=== PATIENT | female | born 1975 | race Caucasian/White ===

== ENCOUNTER 2017-02-08 08:54 | Emergency (ER) | payer OTHER ==
[~2017-02-08] VITALS: Ht 160 cm; Wt 122.0 kg
[~2017-02-08 08:54] MED LIST: FERROUS SULFAT325 MG PO; MARLISSA 30 MCG1 TAB PO
[2017-02-08 08:57] VITALS: BP 122/69
--- NOTE | 2017-02-08 09:39 | NUR ---
PATIENT PRESENTS TO ED WITH SOB X 2 WEEKS . PT STATES SHE HAS A PRODUCTIVE COUGH, HAS BEEN TAKING PREDNISONE AND ALBUTEROL INHALER . DENIES N/V/D; SKIN IS PINK/WARM/DRY; AAOX4 WITH EVEN AND STEADY GAIT; WHEEZES IN RIGHT UPPER LOBE; PT DENIES ANY FEVER, SOB, OR COUGH AT THIS TIME; PATIENT STATES PAIN OF 0/10 AT THIS TIME; VSS; PATIENT POSITIONED FOR COMFORT; HOB ELEVATED;
--- NOTE | 2017-02-08 10:27 | NUR ---
DR STAFFORD AT BEDSIDE
[2017-02-08] MEDS ORDERED: ALBUTEROL SULFATE/IPRATROPIU 3 ML SOL IH ONE (10:30)
[2017-02-08] MEDS ORDERED: methylPREDNISolone SS 125 MG in WATER STERILE 2 ML IM ONE (10:30)
[2017-02-08] MEDS ORDERED: KETOROLAC 60 MG/2 ML VIAL IM ONE (11:00)
[2017-02-08 11:38] VITALS: BP 129/77
--- NOTE | 2017-02-08 11:38 | NUR ---
Patient discharged with v/s stable. Written and verbal after care instructions given and explained. Patient alert, oriented and verbalized understanding of instructions. Ambulatory with steady gait. All questions addressed prior to discharge. ID band removed. Patient advised to follow up with PMD. Rx of TRAMADOL, ATROVENT, PREDNISONE given. Patient educated on indication of medication including possible reaction and side effects. Opportunity to ask questions provided and answered.
== END 2017-02-08 11:38 | disposition home or self-care (01) ==
LOC: MED 08:54
DX: J20.9 Acute bronchitis, unspecified (principal); R03.0 Elevated blood-pressure reading, without diagnosis of hypertension; J45.909 Unspecified asthma, uncomplicated
CPT/HCPCS: 71010; 94640; 96372; 99284; J1885; J2930; J7620; Q0092

== ENCOUNTER 2017-03-04 12:56 | Emergency (ER) | payer OTHER ==
[~2017-03-04] VITALS: Ht 157.5 cm; Wt 121.1 kg
[~2017-03-04 12:56] MED LIST changes: +FERR325E14 PO; -FERROUS SULFAT325 MG PO; -MARLISSA 30 MCG1 TAB PO; +[UNRECOGNIZED DRUG - CODE] PO
[2017-03-04 13:07] VITALS: BP 128/75
--- NOTE | 2017-03-04 14:03 | NUR ---
Patient returning from XRay to bed 4 at this time.
--- NOTE | 2017-03-04 14:05 | NUR ---
41F BIB SELF C/O LEFT RIB PAIN, ACHING, RADIATES TO LEFT BACK, 8/10 X 4 DAYS; NO BRUISING OR SWELLING NOTED TO SITE AT THIS TIME; PT DENIES TRAUMA OR INJURY TO SITE; PT A&OX4, PERRL, BL LUNG SOUNDS CLEAR, RR EVEN/UNLABORED, SKIN IS WARM/DRY/INTACT AT THIS TIME; PT DENIES N/V/D AT THIS TIME; PT RESTING IN BED W/ HOB ELEVATED AND IN LOWEST POSITION; POSITIONED FOR COMFORT; ER MD MADE AWRARE OF STATUS. WILL CONTINUE TO MONITOR.
[2017-03-04] MEDS ORDERED: ACETAMIN/CODEINE 120/12MG-5ML 5 ML UDC PO ONE (14:10)
[2017-03-04] MEDS ORDERED: KETOROLAC 60 MG/2 ML VIAL IM ONE (14:10)
[2017-03-04 14:35] VITALS: BP 136/75
--- NOTE | 2017-03-04 14:35 | NUR ---
Patient discharged with v/s stable. Written and verbal after care instructions given and explained. Patient alert, oriented and verbalized understanding of instructions. Ambulatory with steady gait. All questions addressed prior to discharge. ID band removed. Patient advised to follow up with PMD. Rx of TYLENOL W/ CODEINE 120MG-12MG/5ML & MOTRIN 800MG TAB given. Patient educated on indication of medication including possible reaction and side effects. Opportunity to ask questions provided and answered.
== END 2017-03-04 14:35 | disposition home or self-care (01) ==
LOC: MED 12:56
DX: S29.019A Strain of muscle and tendon of unspecified wall of thorax, initial encounter (principal); J45.909 Unspecified asthma, uncomplicated; X58.XXXA Exposure to other specified factors, initial encounter; Y93.89 Activity, other specified; Y92.89 Other specified places as the place of occurrence of the external cause; Y99.8 Other external cause status
CPT/HCPCS: 71101; 81002; 81025; 93005; 96372; 99284; J1885

== ENCOUNTER 2017-07-31 20:36 | Emergency (ER) | payer OTHER ==
[~2017-07-31] VITALS: Ht 160 cm; Wt 118.4 kg
[2017-07-31 20:40] VITALS: BP 124/77
[2017-07-31] MEDS ORDERED: ONDANSETRON 4 MG/2 ML VIAL IVP ONE (21:10)
[2017-07-31] MEDS ORDERED: MORPHINE SULFATE 4 MG/ML SYR IVP ONE (21:10)
[2017-07-31 21:35] LABS: BASOPHILS # (AUTO) 0.1 K/uL (0.00-0.22); BASOPHILS % (AUTO) 2.2 % (0.0-2.0); EOSINOPHILS # (AUTO) 0.1 K/uL (0-0.4); EOSINOPHILS % (AUTO) 2.2 % (0.0-4.0); HEMATOCRIT 32.3 % (36-48); HEMOGLOBIN 9.6 g/dL (12.0-16.0); LYMPHOCYTES % (AUTO) 30.1 % (20.5-51.1); MEAN CORPUSCULAR HEMOGLOBIN 20 pg (27-31); MEAN CORPUSCULAR HGB CONC 30 g/dL (33-37); MEAN CORPUSCULAR VOLUME 67 fL (80-94); MONOCYTES # (AUTO) 0.5 K/uL (0.8-1.0); MONOCYTES % (AUTO) 7.1 % (1.7-9.3); NEUTROPHILS # (AUTO) 4.1 K/uL (1.8-7.7); NEUTROPHILS % (AUTO) 58.4 % (42.2-75.2); PLATELET COUNT (AUTO) 261 K/uL (140-450); RED BLOOD CELL COUNT(AUTO) 4.85 MIL/uL (4.20-5.40); WHITE BLOOD COUNT (AUTO) 6.8 K/uL (4.8-10.8)
[2017-07-31 21:42] LABS: ANION GAP 13.3 (8-16); CARBON DIOXIDE 26.7 mmol/L (21-32); CREATININE 0.6 mg/dL (0.6-1.3)
[2017-07-31 21:48] LABS: ALBUMIN 3.4 g/dL (3.4-5.0); TOTAL BILIRUBIN 0.3 mg/dL (0.0-1.0)
[2017-07-31 21:48] LABS: APPEARANCE,URINE CLOUDY (CLEAR); BILIRUBIN,URINE NEGATIVE (NEGATIVE); BLOOD, URINE 3+ (NEGATIVE); LEUKOCYTE ESTERASE ,URINE NEGATIVE (NEGATIVE); NITRITE, URINE NEGATIVE (NEGATIVE); PH,URINE 8.5 (5.0-9.0); UGLUCOSE NEGATIVE (NEGATIVE)
[2017-07-31 21:53] LABS: COLOR,URINE RED (YELLOW)
[2017-07-31 21:59] LABS: RBC,URINE TOO NUMEROUS TO COUN /HPF (0-5); WBC,URINE 0-5 (RARE) /HPF (0-5)
[2017-07-31] MEDS ORDERED: KETOROLAC 30 MG/ML VIAL IVP ONE (23:10)
[2017-08-01 01:15] VITALS: BP 129/78
== END 2017-08-01 01:05 | disposition home or self-care (01) ==
LOC: MED 20:36
DX: D25.9 Leiomyoma of uterus, unspecified (principal); D64.9 Anemia, unspecified
CPT/HCPCS: 36415; 74177; 76856; 80053; 81001; 81025; 83690; 84703; 85025; 96374; 96375; 99285; J1885; J2270; J2405; Q0092; Q9967

== ENCOUNTER 2018-12-03 20:58 | Emergency (ER) | payer OTHER ==
[~2018-12-03] VITALS: Ht 160 cm; Wt 120.2 kg
[2018-12-03 21:02] VITALS: BP 123/66
--- NOTE | 2018-12-03 21:04 | NUR ---
TO LOBBY A/W BED , SOLANGE WHITFIELD NOTED
--- NOTE | 2018-12-03 21:25 | NUR ---
ASSUMED CARE OF PT AT THIS TIME. C/O SUDDEN ONSET LEFT LOWER BACK PAIN RADIATING DOWN THE LEFT LEG X 1 DAY. PT DENIES ANY TRAUMA. AAOX4 WITH EVEN AND STEADY GAIT; PATIENT STATES PAIN OF 8/10; VSS; PATIENT POSITIONED FOR COMFORT; HOB ELEVATED; BEDRAILS UP X2; BED DOWN. ER MD MADE AWARE OF PT STATUS. WILL CONTINUE TO MONITOR.
--- NOTE | 2018-12-03 21:25 | NUR ---
PT TAKEN TO BED 10
--- NOTE | 2018-12-03 21:28 | NUR ---
PT TO ER BED 10
--- NOTE | 2018-12-03 21:39 | NUR ---
Dr. Lowry evaluating patient at bedside.
[2018-12-03] MEDS ORDERED: KETOROLAC 30 MG/ML VIAL IM ONE (21:45)
--- NOTE | 2018-12-03 22:11 | NUR ---
PT TAKEN TO XRAY
--- NOTE | 2018-12-03 22:23 | NUR ---
PT RETURN FROM XRAY
[2018-12-03 23:00] VITALS: BP 124/64
--- NOTE | 2018-12-03 23:00 | NUR ---
Patient discharged with v/s stable. Written and verbal after care instructions given and explained. Patient alert, oriented and verbalized understanding of instructions. Ambulatory with steady gait. All questions addressed prior to discharge. ID band removed. Patient advised to follow up with PMD. Rx of ROBAXIN, MOTRIN, AND TRAMADOL given. Patient educated on indication of medication including possible reaction and side effects. Opportunity to ask questions provided and answered.
== END 2018-12-03 23:00 | disposition home or self-care (01) ==
LOC: MED 20:58
DX: M54.42 Lumbago with sciatica, left side (principal); J45.909 Unspecified asthma, uncomplicated; Z79.899 Other long term (current) drug therapy
CPT/HCPCS: 72100; 96372; 99283; J1885

== ENCOUNTER 2019-01-24 20:45 | Emergency (ER) | payer OTHER ==
[~2019-01-24] VITALS: Ht 160 cm; Wt 124.4 kg
[2019-01-24 20:57] VITALS: BP 136/70
--- NOTE | 2019-01-24 21:00 | NUR ---
TO LOBBY, VSS. NO DISTRESS NOTED.
--- NOTE | 2019-01-24 21:34 | NUR ---
PT TAKEN TO XRAY FROM G[facility] AMEZQUITA
--- NOTE | 2019-01-24 21:41 | NUR ---
PT BIB SELF CO COUGH AND 8/10 LEFT SIDED RIB PAIN X 1 WEEK. PT STATES THE PAIN IS A CONSTANT ACHEY PAIN THAT IS WORSE WHILE COUGHING. PT DENIES FEVER. LUNGS CTA. PT REPORTS HX OF ASTHMA AND HAS RUN OUT OF HER INHALER. -- PMH: ASTHMA, ANEMIA -- RX: MUCINEX PT IS RESTING COMFORTABLY. NO SIGNS OF RESPIRATORY DISTRESS. HOB ELEVATED. PT POSITIONED FOR COMFORT. SIDE RAIL UP X 1.
--- NOTE | 2019-01-24 21:43 | NUR ---
PT IN X-RAY AT THIS TIME, GOING TO ER BED 12
--- NOTE | 2019-01-24 21:54 | NUR ---
PT RETURN FROM XRAY TO ER BED 12
--- NOTE | 2019-01-24 23:24 | NUR ---
Dr. Paula evaluating patient at bedside.
[2019-01-24] MEDS ORDERED: KETOROLAC 60 MG/2 ML VIAL IM ONE (23:30)
--- NOTE | 2019-01-25 00:05 | NUR ---
Patient discharged with v/s stable. Written and verbal after care instructions given and explained. Patient alert, oriented and verbalized understanding of instructions. Ambulatory with steady gait. All questions addressed prior to discharge. ID band removed. Patient advised to follow up with PMD. Rx of PREDNISONE, MOTRIN AND ALBUTEROL given. Patient educated on indication of medication including possible reaction and side effects. Opportunity to ask questions provided and answered.
[2019-01-25 00:07] VITALS: BP 136/70
== END 2019-01-25 00:05 | disposition home or self-care (01) ==
LOC: MED 20:45
DX: R07.89 Other chest pain (principal); R05 Cough; J45.909 Unspecified asthma, uncomplicated; Z98.890 Other specified postprocedural states; Z79.899 Other long term (current) drug therapy
CPT/HCPCS: 71101; 96372; 99283; J1885

== ENCOUNTER 2019-02-01 21:03 | Emergency (ER) | payer OTHER ==
[~2019-02-01] VITALS: Ht 160 cm; Wt 126.1 kg
[2019-02-01 21:10] VITALS: BP 117/67
--- NOTE | 2019-02-01 21:14 | NUR ---
TO LOBBY A/W BED, SOLANGE WHITFIELD, OTILIA NOTED
--- NOTE | 2019-02-01 21:21 | NUR ---
PT TAKEN TO XRAY FROM G[facility] AMEZQUITA
--- NOTE | 2019-02-01 21:50 | NUR ---
PT AMBULATED TO BED 9.
--- NOTE | 2019-02-01 21:59 | NUR ---
BIB SELF WITH C/O LEFT SIDED RIB PAIN. STATES SHE WAS SEEN HER A COUPLE WEEKS AGO FOR THE SAME PAIN. THE LAST TWO DAYS IT HAS GOTTEN WORSE. STATES THE PAIN IS THE WORST WHEN SHE COUGHS OR SNEEZES. DENIES SOB, CP, FEVER AT THIS TIME.
--- NOTE | 2019-02-01 23:02 | NUR ---
Dr. Lowry evaluating patient at bedside.
[2019-02-01 23:23] VITALS: BP 117/67
--- NOTE | 2019-02-01 23:23 | NUR ---
Patient discharged with v/s stable. Written and verbal after care instructions given and explained. Patient alert, oriented and verbalized understanding of instructions. Ambulatory with steady gait. All questions addressed prior to discharge. ID band removed. Patient advised to follow up with PMD. Rx of CLARITIN given. Patient educated on indication of medication including possible reaction and side effects. Opportunity to ask questions provided and answered.
== END 2019-02-01 23:23 | disposition home or self-care (01) ==
LOC: MED 21:03
DX: S20.212A Contusion of left front wall of thorax, initial encounter (principal); J45.909 Unspecified asthma, uncomplicated; Z79.899 Other long term (current) drug therapy; X58.XXXA Exposure to other specified factors, initial encounter; Y93.89 Activity, other specified; Y92.89 Other specified places as the place of occurrence of the external cause; Y99.8 Other external cause status
CPT/HCPCS: 71045; 71100; 99283

== ENCOUNTER 2019-03-25 03:33 | Inpatient (IN) | payer OTHER ==
[~2019-03-25] VITALS: Ht 160 cm; Wt 120.2 kg
[2019-03-25 03:40] VITALS: BP 129/66
--- NOTE | 2019-03-25 03:52 | NUR ---
PT AMB TO ER BED 1
--- NOTE | 2019-03-25 04:05 | NUR ---
PT TO ED WITH C/O WEAKNESS AND DIZZINESS WELL ABNORMAL LABS (6.5HBG) FROM PRIMARY MD. PT HAS HX OF ANEMIA AND RECEIVED PREVIOUS TRANFUSION IN 2016. PT PLACED INTO BED, PENDING MD HARVEY.
--- NOTE | 2019-03-25 04:06 | NUR ---
LABS DRAWN AND TAKEN TO LAB BY EMILY
[2019-03-25 04:12] LABS: EOSINOPHILS # (AUTO) 0.1 K/uL (0-0.4); RED BLOOD CELL COUNT(AUTO) 4.73 MIL/uL (4.20-5.40)
[2019-03-25 04:16] LABS: BASOPHILS % (AUTO) 0.6 % (0.0-2.0); EOSINOPHILS % (AUTO) 1.5 % (0.0-4.0); HEMATOCRIT 24.3 % (36-48); LYMPHOCYTES # (AUTO) 2.2 K/uL (2.5-16.5); MEAN CORPUSCULAR HEMOGLOBIN 14 pg (27-31); MEAN CORPUSCULAR HGB CONC 27 g/dL (33-37); MEAN CORPUSCULAR VOLUME 51.3 fL (80-94); MONOCYTES # (AUTO) 0.4 K/uL (0.8-1.0); NEUTROPHILS # (AUTO) 5.2 K/uL (1.8-7.7); NEUTROPHILS % (AUTO) 64.9 % (42.2-75.2); PLATELET COUNT (AUTO) 358 K/uL (140-450); RED CELL DISTRIBUTION WIDTH 21.2 % (11.6-13.7); WHITE BLOOD COUNT (AUTO) 7.9 K/uL (4.8-10.8)
[2019-03-25 04:30] LABS: HEMOGLOBIN 6.6 g/dL (12.0-16.0)
[2019-03-25 04:54] LABS: ANION GAP 14.3 (8-16); CARBON DIOXIDE 25.2 mmol/L (21-32); CREATININE 0.6 mg/dL (0.6-1.3); POTASSIUM 3.5 mmol/L (3.5-5.1)
[2019-03-25 05:00] LABS: ALBUMIN 3.5 g/dL (3.4-5.0); TOTAL BILIRUBIN 0.7 mg/dL (0.0-1.0)
[2019-03-25 05:30] LABS: PROTHROMBIN TIME 9.8 secs (10.8-13.4)
[2019-03-25] MEDS ORDERED: VITD1000 PO (05:48)
[2019-03-25] MEDS ORDERED: ONDANSETRON 4 MG/2 ML VIAL IVP PRN ×2 (06:10→06:30)
[2019-03-25] MEDS ORDERED: ACETAMINOPHEN 325 MG TAB PO PRN ×2 (06:10→06:30)
--- NOTE | 2019-03-25 06:30 | NUR ---
RECEIVED BEDSIDE REPORT FROM ED NURSE. PATIENT IS AWAKE, ALERT, AND COOPERATIVE. RESPIRATION EVEN UNLABORED ON ROOM AIR. SKIN IS WARM AND DRY. IV PATENT AND INTACT. MRSA SCREEN DONE. ORIENT PATIENT TO ROOM, STAFF, AND CALL LIGHT. VITALS WERE TAKEN. ALL SAFETY MEASURES IN PLACE. BED IS IN LOW POSITION. CALL LIGHT WITHIN REACH AND VERBALIZES ITS USE. WILL CONTINUE TO MONITOR
--- NOTE | 2019-03-25 06:39 | NUR ---
Patient will be admitted to care of DR VARELA. Admited to TELE. Will go to room 115. Belongings list completed. Report to EMILY STONER.
--- NOTE | 2019-03-25 07:19 | NUR ---
ENDORSED PATIENT TO DAY SHIFT NURSE FOR CONTINUITY OF CARE. PATIENT IS IN STABLE CONDITION.
--- NOTE | 2019-03-25 07:20 | NUR ---
RECEIVED REPORT FROM PM NURSE AT BEDSIDE. PT LYING ON HER BED COMFORTABLY. PT DENIES ANY DISCOMFORT OR PAIN. PT HAS LOW HEMOGLOBIN, TO GET THE BLOOD TRANSFUSION. TYPE SCREENING OF BLOOD IN PROCESS, WAITING FOR THE RESULT. PT HAS LFT AC 22 G, IV ACCESS, SL. WILL CONTINUE TO MONITOR PT.
[2019-03-25 08:00] VITALS: BP 114/62
--- NOTE | 2019-03-25 08:35 | NUR ---
PATIENT HAS BEEN SCREENED AND CATEGORIZED HIGH NUTRITION RISK. PATIENT WILL BE SEEN WITHIN 1-2 DAYS OF ADMISSION. 03/26/19-03/27/[address]
[2019-03-25] MEDS: LACTATED RINGERS 1,000 ML IV SCH ×2 (09:10→21:40)
--- NOTE | 2019-03-25 09:13 | NUR ---
PAGED DR VARELA REGARDING DIET ORDER AND FLUIDS. DR ALEX CALLED BACK , ORDERED TO [place] PT NPO FOR POSSIBLE EGD PROCEDURE, DR TO PUT GI CONSULT ON PT. RECIEVED ORDER TO STRAT IVF LR, 80 ML/HR. WILL CONTINUE TO MONITOR PT.
--- NOTE | 2019-03-25 11:15 | NUR ---
STARTED FIRST BAG OF PRBC FOR BLOOD TRANSFUSION ON PT . TRANSFUSION PROCES WITNESSED BY SECOND RN GRABIEL, BLOOD PRODUCT IDENTIFIED WITH PT WRIST BAND. VS RECORDED BP 104/52, T 97.5, RR 18, HR 81, DENIES ANY PAIN AT THIS TIME. WILL MONITOR FOR ANY POSSIBLE REACTIONS DUE TO BLOOD TRANSFUSION. PT CONSENT OBTAINED, IN PTS CHART. WILL CONTINUE TO MONITOR PT.
--- NOTE | 2019-03-25 11:45 | NUR ---
PT TOLERATING BLOOD TRANSFUSION WELL. NORMAL VS. DENIES ANY PAIN . RESTING COMFORTABLY. WILL CONTINUE TO MONITOR PT.
[2019-03-25 12:15] VITALS: BP 107/52
--- NOTE | 2019-03-25 12:15 | NUR ---
CHECKED ON PT . VS RECORDED T 97.5, BP 107/52, HR 78, RR 18, PAIN 0. INCREASED THE RATE OF BLOOD TRANSFUSION AT 100 ML/HR. PT TOLERATING WELL. NO SIGN OF DISTRESS NOTED. CALL LIGHT WTIHIN PTS REACH. INFORMED HER TO USE CALL LIGHT FOR ANY HELP. WILL CONTINUE TO MONITOR PT.
--- NOTE | 2019-03-25 13:15 | NUR ---
CHECKED ON PT. SLEEPING ON HER BED GOOD. NO DISTRESS NOTED. ALL SAFETY MEASURE IN PLACE. VS NORMAL. BLOOD INFUSING WELL. WILL CONTINUE TO MONITOR PT.
--- NOTE | 2019-03-25 13:31 | NUR ---
CALLED ENGINE REPAIRER PRODUCTION ABOUT H&H DRAWING. INFORMED TO DRAW THE BLOOD AFTER TWO HOURS OF COMPLETION OF TRANSFUSION OF SECOND UNIT BLOOD. VERBALIZED UNDERSTANDING.
--- NOTE | 2019-03-25 15:40 | NUR ---
STARTED SECOND BAG OF THE BLOOD. SECOND RN GRABIEL VERIFIED THE BLOOD PRODUCT BEFORE TRANSFUSION. VS RECORDED T 98.5, BP 117/75, HR 77, O2 SAT 97 %, RR 18. DENIES ANY PAIN AT THIS TIME. NO SIGN OF DISTRESS NOTED. BLOOD TRANSFUSING AT 50 ML/HR. WILL CONTINUE TO MONITOR PT.
[2019-03-25 16:10] VITALS: BP 130/60
--- NOTE | 2019-03-25 18:39 | NUR ---
CHECKED ON THE PT. LYING ON HER BED COMFORTABLY. DENIES ANY PAIN, ANY DISTRESS. BLOOD TRANSFUSING WELL. PT TO GET THE H&H CHECKED AFTER TWO HOURS COMPLETION OF THE SECOND BAG OF BLOOD. PT STABLE, STATES LIVES [address]OSPITAL. PT FAMILY AT THE BEDSIDE. WILL CONTINUE TO MONITOR PT.
--- NOTE | 2019-03-25 18:59 | NUR ---
CALLED LAB AND MADE AWARE THAT THEY CAN DRAW THE BLOOD AT 2100 FOR H&H. WATCH ELECTRICIAN . BLOOD TRANSFUSION STOPPED AT 1855. VS RECORDED BP 102/52, HR 77, T 98.6, RR 18. PT IN STABLE CONDITION. WILL CONTINUE TO MONITOR PT.
--- NOTE | 2019-03-25 19:20 | NUR ---
ENDORSED PT TO PM NURSE AT BEDSIDE. PT IN STABLE CONDITION.
--- NOTE | 2019-03-25 19:25 | NUR ---
RECEIVED BEDSIDE REPORT FROM DAY SHIFT NURSE. PATIENT IS AWAKE, ALERT, AND COOPERATIVE. RESPIRATION EVEN UNLABORED ON ROOM AIR. NO DISTRESS NOTED. SKIN IS WARM AND DRY. IV PATENT AND INTACT. PLAN OF CARE WAS DISCUSSED. ALL SAFETY MEASURES IN PLACE. BED IS AT LOW POSITION. CALL LIGHT WITHIN REACH AND VERBALIZES ITS USE. WILL CONTINUE TO MONITOR.
[2019-03-25 20:00] VITALS: BP 112/60
--- NOTE | 2019-03-25 20:00 | NUR ---
INITIAL ASSESSMENT DONE. VITALS WERE TAKEN. PATIENT CONDITION STABLE. WILL CONTINUE TO MONITOR
--- NOTE | 2019-03-25 21:00 | NUR ---
CHECKED PATIENT. PATIENT IN BED WATCHING TV RESPIRATION EVEN UNLABORED ON ROOM AIR. NO DISTRESS NOTED. WILL CONTINUE TO MONITOR.
[2019-03-25 21:38] LABS: BASOPHILS % (AUTO) 0.3 % (0.0-2.0); EOSINOPHILS # (AUTO) 0.1 K/uL (0-0.4); EOSINOPHILS % (AUTO) 1.4 % (0.0-4.0); HEMATOCRIT 25.8 % (36-48); HEMOGLOBIN 7.7 g/dL (12.0-16.0); LYMPHOCYTES # (AUTO) 1.7 K/uL (2.5-16.5); LYMPHOCYTES % (AUTO) 25.1 % (20.5-51.1); MEAN CORPUSCULAR HEMOGLOBIN 17 pg (27-31); MEAN CORPUSCULAR HGB CONC 30 g/dL (33-37); MEAN CORPUSCULAR VOLUME 55.3 fL (80-94); MONOCYTES # (AUTO) 0.5 K/uL (0.8-1.0); MONOCYTES % (AUTO) 6.9 % (1.7-9.3); NEUTROPHILS # (AUTO) 4.6 K/uL (1.8-7.7); NEUTROPHILS % (AUTO) 66.3 % (42.2-75.2); PLATELET COUNT (AUTO) 308 K/uL (140-450); RED BLOOD CELL COUNT(AUTO) 4.67 MIL/uL (4.20-5.40); RED CELL DISTRIBUTION WIDTH 24.9 % (11.6-13.7); WHITE BLOOD COUNT (AUTO) 6.9 K/uL (4.8-10.8)
--- NOTE | 2019-03-25 22:02 | NUR ---
PATIENT HGB 7.7 DR. BOTELLO ORDERED TO HOLD DISCHARGE AND DO CBC IN AM. PATIENT IS AWARE OF THE SITUATION.
--- NOTE | 2019-03-25 22:04 | NUR ---
LACTATED RINGER WAS HELD PER DR. ALEX ORDER. WILL CONTINUE TO MONITOR
--- NOTE | 2019-03-25 22:10 | NUR ---
RECEIVE PT FROM KEMAL RN , PT IS AAOX4 VERBALIZED NEEDED S/P 2 UNITS PRBC , PT IS AMBULATORY NOT DISTRESS NOTED AT THIS TIME ON CLOSE MONITORING, NOT ACTIVE BLEEDING NOTED , LAB WILL BE MONITORING AND DR ORDER WILL BE FOLLOW
[2019-03-26] VITALS: BP 120/70
--- NOTE | 2019-03-26 | NUR ---
PT RESTING ON BED VITALS SIGNS ARE STABLE WAITING FOR BLOOD TO BE READY TO TRANSFUSED ONE UNITS PRBC
--- NOTE | 2019-03-26 02:00 | NUR ---
PT SLEEPING WELL NOT DISTRESS NOTED WAITING FOR BLOOD TO BE TRANSFUSE.
--- NOTE | 2019-03-26 03:15 | NUR ---
AT 0315 ONE UNIT OF PRBC STARTED TO BE TRANSFUSED PT WILL BE MONITORING FOLLOWING PROTOCOL
[2019-03-26 04:00] VITALS: BP 132/76
--- NOTE | 2019-03-26 04:33 | NUR ---
PT ON BLOOD TRANSFUSION, NOT DISTRESS NOTED REMAIN STABLE, GETTING SLEEP
--- NOTE | 2019-03-26 05:30 | NUR ---
PT SLEEPING WELL ON LEFT AC BLOOD TRANSFUSION INFUSING WELL NOT SIGNS OF DISTRESS NOTED
--- NOTE | 2019-03-26 06:40 | NUR ---
AT 0640 AM. BLOOD TRANSFUSION END. PT AWAKE DENIES ANY PAIN OR DISCOMFORT PT WILL BE ENDORSED TO DAY SHIFT NURSE FOR CONTINUING CARE AND MONITORING NEXT H AND H
--- NOTE | 2019-03-26 07:30 | NUR ---
RECEIVED REPORT FROM PM NURSE AT BEDSIDE. PT LYING ON HER BED. BLOOD TRANSFUSED AND ENDED AT 0640 AM , WAITING FOR THE LAB DRAW AFTER TOW HRS. WILL CONTINUE TO MONITOR HER LABS. LAB AWARE TO DRAW THE BLOOD FOR H&H AT 0900. VS STABLE AT THIS TIME. WILL CONTINUE TO MONITOR PT.
[2019-03-26 07:59] VITALS: BP 129/68
--- NOTE | 2019-03-26 09:30 | NUR ---
CALLED LAB TO DRAW THE BLOOD ON PT FOR H&H. WAITING FOR HGB TO BE STABLE TO DISCHARGE PT.
[2019-03-26] MEDS: LACTATED RINGERS 1,000 ML IV SCH (10:10)
[2019-03-26 10:28] LABS: BASOPHILS % (AUTO) 0.7 % (0.0-2.0); EOSINOPHILS # (AUTO) 0.1 K/uL (0-0.4); EOSINOPHILS % (AUTO) 2.2 % (0.0-4.0); HEMATOCRIT 28.6 % (36-48); HEMOGLOBIN 8.5 g/dL (12.0-16.0); LYMPHOCYTES # (AUTO) 1.7 K/uL (2.5-16.5); LYMPHOCYTES % (AUTO) 26.9 % (20.5-51.1); MEAN CORPUSCULAR HEMOGLOBIN 17 pg (27-31); MEAN CORPUSCULAR HGB CONC 30 g/dL (33-37); MEAN CORPUSCULAR VOLUME 57.6 fL (80-94); MONOCYTES # (AUTO) 0.5 K/uL (0.8-1.0); NEUTROPHILS # (AUTO) 3.9 K/uL (1.8-7.7); NEUTROPHILS % (AUTO) 62.2 % (42.2-75.2); PLATELET COUNT (AUTO) 308 K/uL (140-450); RED BLOOD CELL COUNT(AUTO) 4.97 MIL/uL (4.20-5.40); RED CELL DISTRIBUTION WIDTH 29.7 % (11.6-13.7); WHITE BLOOD COUNT (AUTO) 6.3 K/uL (4.8-10.8)
--- NOTE | 2019-03-26 11:40 | NUR ---
PT DISCHARGED TO HOME WITH SELF CARE. ALL PRESCRIPTION AND THE DISCHARGE DOCUMENT PROVIDED. DISCHARGE EDUCATION PROVIDED TO THE PT. VERBALIZED UNDERSTANDING. PT WALKED WITH HER MOM OUT TO THE LOBBY.
== END 2019-03-26 11:40 | disposition home or self-care (01) | DRG 663 ==
LOC: MED 03:33 → MTU 06:11 → MED 06:17
PROVIDERS: ADMIT Internal Medicine Pulmonary Disease; ATTEND Internal Medicine Pulmonary Disease
PROC: 30233N1 Transfusion of Nonautologous Red Blood Cells into Peripheral Vein, Percutaneous Approach (ICD-10-PCS; principal; 2019-03-25)
DX: D50.9 Iron deficiency anemia, unspecified (principal); E66.01 Morbid (severe) obesity due to excess calories; N92.0 Excessive and frequent menstruation with regular cycle; Z68.42 Body mass index [BMI] 45.0-49.9, adult
CPT/HCPCS: 36415; 80053; 81025; 85025; 85610; 85730; 86886; 86900; 86901; 86920; 87081; 99285; J7030; J7120; P9016

== ENCOUNTER 2019-07-03 04:29 | Emergency (ER) | payer OTHER ==
[~2019-07-03] VITALS: Ht 157.5 cm; Wt 118.4 kg
[~2019-07-03 04:29] MED LIST changes: +VITD1000 PO
[2019-07-03 04:35] VITALS: BP 130/83
--- NOTE | 2019-07-03 04:35 | NUR ---
to bed # 11 ambulatory
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
[2019-07-03] MEDS ORDERED: KETOROLAC 15 MG/ML VIAL IM ONE (05:30)
--- NOTE | 2019-07-03 06:42 | NUR ---
PT. AMBULATED TO THE RESTROOM.
[2019-07-03] MEDS ORDERED: HYDROcodone/APAP 5/325 MG 1 TAB TAB PO ONE (07:10)
[2019-07-03 08:04] VITALS: BP 121/69
== END 2019-07-03 08:05 | disposition home or self-care (01) ==
LOC: MED 04:29
DX: R07.89 Other chest pain (principal); J45.909 Unspecified asthma, uncomplicated; Z79.899 Other long term (current) drug therapy; W20.8XXA Other cause of strike by thrown, projected or falling object, initial encounter; Y93.89 Activity, other specified; Y99.8 Other external cause status; Y92.89 Other specified places as the place of occurrence of the external cause
CPT/HCPCS: 71101; 93005; 96372; 99283; J1885

== ENCOUNTER 2019-07-10 09:22 | Emergency (ER) | payer OTHER ==
[~2019-07-10] VITALS: Ht 157.5 cm; Wt 118.6 kg
[2019-07-10 09:27] VITALS: BP 122/65
--- NOTE | 2019-07-10 09:27 | NUR ---
Pt taken to bed 6.
--- NOTE | 2019-07-10 09:30 | NUR ---
PATIENT BIB SELF WITH C/O STERNAL CHEST PAIN RADIATING TO MID BACK INTERMITTENT, PRESSURE UPON WAKING UP THIS MORNING. PT DENIES SOB, VOMITING, FEVER, RECENT ILLNESS. PT STATES THAT SHE WAS SEEN HERE LAST WEEK BECAUSE A BOX FELL ON HER RIGHT CHEST AND WAS PRESCRIBED WITH [place]. PT NOTED TO HAVE UNSTOPPABLE BLINKING ON LEFT EYE DUE TO ONGOING UNKNOWN DIAGNOSIS. PMH: ANEMIA, ASTHMA, PATIENT STATES CHEST PAIN OF 3/10 AT THIS TIME; VSS; PATIENT POSITIONED FOR COMFORT; HOB ELEVATED; BEDRAILS UP X2; BED DOWN. ER MD MADE AWARE OF PT STATUS.
--- NOTE | 2019-07-10 09:45 | NUR ---
Dr. John evaluating patient at bedside.
[2019-07-10] MEDS ORDERED: ASPIRIN 325 MG TAB PO ONE (09:55)
[2019-07-10 10:11] LABS: BASOPHILS % (AUTO) 0.3 % (0.0-2.0); EOSINOPHILS # (AUTO) 0.2 K/uL (0-0.4); EOSINOPHILS % (AUTO) 2.3 % (0.0-4.0); HEMATOCRIT 31.5 % (36-48); HEMOGLOBIN 10.1 g/dL (12.0-16.0); LYMPHOCYTES # (AUTO) 1.9 K/uL (2.5-16.5); LYMPHOCYTES % (AUTO) 29.5 % (20.5-51.1); MEAN CORPUSCULAR HEMOGLOBIN 25 pg (27-31); MEAN CORPUSCULAR HGB CONC 32 g/dL (33-37); MEAN CORPUSCULAR VOLUME 76.8 fL (80-94); MONOCYTES # (AUTO) 0.4 K/uL (0.8-1.0); MONOCYTES % (AUTO) 6.8 % (1.7-9.3); NEUTROPHILS # (AUTO) 3.9 K/uL (1.8-7.7); NEUTROPHILS % (AUTO) 61.1 % (42.2-75.2); PLATELET COUNT (AUTO) 217 K/uL (140-450); RED CELL DISTRIBUTION WIDTH 19.4 % (11.6-13.7); WHITE BLOOD COUNT (AUTO) 6.5 K/uL (4.8-10.8)
[2019-07-10 10:52] LABS: ANION GAP 12.6 (8-16); CARBON DIOXIDE 25.9 mmol/L (21-32); CREATININE 0.6 mg/dL (0.6-1.3); POTASSIUM 3.5 mmol/L (3.5-5.1)
[2019-07-10 12:48] VITALS: BP 124/68
--- NOTE | 2019-07-10 12:48 | NUR ---
Patient discharged with v/s stable. Written and verbal after care instructions given and explained. Patient verbalized understanding. Ambulatory with steady gait. All questions addressed prior to discharge. Advised to follow up with PMD.
== END 2019-07-10 12:48 | disposition home or self-care (01) ==
LOC: MED 09:22
DX: R07.89 Other chest pain (principal); J45.909 Unspecified asthma, uncomplicated; Z79.899 Other long term (current) drug therapy
CPT/HCPCS: 36415; 71046; 80048; 84484; 85025; 93005; 99284

== ENCOUNTER 2019-11-13 15:50 | Emergency (ER) | payer OTHER ==
[~2019-11-13] VITALS: Ht 160 cm; Wt 117.9 kg
[2019-11-13 16:27] VITALS: BP 131/83
--- NOTE | 2019-11-13 16:35 | NUR ---
in triage to confirm triage assessment
--- NOTE | 2019-11-13 16:36 | NUR ---
urine cup handed to pt for sample
--- NOTE | 2019-11-13 16:54 | NUR ---
44 Y/O C/C FACE SWOLLEN X1 DAY. PER PT DOES NOT KNOW REASON OF SWOLLENESS. PT ASYMPTOMATIC. NO FACIAL ASYMMETRY. NO STROKE SYMPTOMS. PT NKA. HX ANEMIA. RX NONE. NO N/V/D. NO PAIN. PT SITING IN CHAIR C.
--- NOTE | 2019-11-13 16:55 | NUR ---
PT TAKEN TO CHAIR Chiquita.
[2019-11-13 17:15] VITALS: BP 128/80
--- NOTE | 2019-11-13 17:15 | NUR ---
Patient discharged with v/s stable. Written and verbal after care instructions given and explained. Patient alert, oriented and verbalized understanding of instructions. Ambulatory with steady gait. All questions addressed prior to discharge. ID band removed. Patient advised to follow up with PMD. Rx of ALBUTEROL,ACYCLOVIR,PREDNISONE given. Patient educated on indication of medication including possible reaction and side effects. Opportunity to ask questions provided and answered.
== END 2019-11-13 17:15 | disposition home or self-care (01) ==
LOC: MED 15:50
DX: G51.0 Bell's palsy (principal); J45.909 Unspecified asthma, uncomplicated; Z79.899 Other long term (current) drug therapy; Z98.890 Other specified postprocedural states
CPT/HCPCS: 99283

== ENCOUNTER 2020-06-05 09:31 | Emergency (ER) | payer OTHER, SELFPAY ==
[~2020-06-05] VITALS: Ht 160 cm; Wt 115.7 kg
[2020-06-05 09:48] VITALS: BP 140/92
--- NOTE | 2020-06-05 10:01 | NUR ---
PT AMBULATED TO BED 12.
--- NOTE | 2020-06-05 10:09 | NUR ---
44/F BIB SELF C/O VAGINAL BLEEDING X 3 WEEKS AND C/O HEADACHE 2 DAYS. PT & FAMILY HAD COVID TESTED + 04/09/20 & TESTED AGAIN NEGATIVE 04/23/20. DENIES FEVER OR COUGH. TOOK TYLENOL AT 8.30 AM. MED HX: ANEMIA, ASTHMA. PATIENT STATES PAIN OF 6/10 AT THIS TIME. PATIENT POSITIONED FOR COMFORT; HOB ELEVATED; BEDRAILS UP X1; BED DOWN. ER MD MADE AWARE OF PT STATUS.
[2020-06-05] MEDS ORDERED: KETOROLAC 15 MG/ML VIAL IVP ONE (10:35)
[2020-06-05] MEDS ORDERED: diphenhydrAMINE 50 MG/ML VIAL IVP ONE (10:35)
[2020-06-05] MEDS ORDERED: PROCHLORPERAZINE 10 MG/2 ML VIAL IVP ONE (10:35)
[2020-06-05 11:00] LABS: BASOPHILS % (AUTO) 0.4 % (0.0-2.0); EOSINOPHILS # (AUTO) 0.1 K/uL (0-0.4); EOSINOPHILS % (AUTO) 2.4 % (0.0-4.0); HEMATOCRIT 21.6 % (36-48); LYMPHOCYTES # (AUTO) 1.6 K/uL (2.5-16.5); LYMPHOCYTES % (AUTO) 28.9 % (20.5-51.1); MEAN CORPUSCULAR HEMOGLOBIN 22 pg (27-31); MEAN CORPUSCULAR HGB CONC 30 g/dL (33-37); MEAN CORPUSCULAR VOLUME 74.1 fL (80-94); MONOCYTES # (AUTO) 0.4 K/uL (0.8-1.0); MONOCYTES % (AUTO) 6.8 % (1.7-9.3); NEUTROPHILS # (AUTO) 3.3 K/uL (1.8-7.7); NEUTROPHILS % (AUTO) 61.5 % (42.2-75.2); PLATELET COUNT (AUTO) 321 K/uL (140-450); RED BLOOD CELL COUNT(AUTO) 2.92 MIL/uL (4.20-5.40); RED CELL DISTRIBUTION WIDTH 18.2 % (11.6-13.7); WHITE BLOOD COUNT (AUTO) 5.4 K/uL (4.8-10.8)
[2020-06-05 11:29] LABS: ANION GAP 14.1 (8-16); CARBON DIOXIDE 26.1 mmol/L (21-32); CREATININE 0.6 mg/dL (0.6-1.3); POTASSIUM 4.2 mmol/L (3.5-5.1)
[2020-06-05 11:34] LABS: HEMOGLOBIN 6.5 g/dL (12.0-16.0)
[2020-06-05] MEDS ORDERED: LORazepam 0.5 MG TAB PO ONE (11:55)
[2020-06-05] MEDS ORDERED: HYDROcodone/APAP 5/325 MG 1 TAB TAB PO PRN (12:20)
[2020-06-05] MEDS ORDERED: LORazepam 2 MG/ML VIAL IVP PRN (12:20)
[2020-06-05] MEDS ORDERED: MORPHINE SULFATE 4 MG/ML SYR IVP PRN (12:20)
[2020-06-05] MEDS ORDERED: ACETAMINOPHEN 325 MG TAB PO PRN (12:20)
[2020-06-05] MEDS ORDERED: ONDANSETRON 4 MG/2 ML VIAL IVP PRN (12:20)
--- NOTE | 2020-06-05 12:24 | NUR ---
Patient appears to be resting in bed. Vital Signs within normal limits. Respirations even and unlabored.
[2020-06-05 12:50] LABS: PROTHROMBIN TIME 9.1 secs (10.8-13.4)
[2020-06-05 13:01] LABS: APPEARANCE,URINE YELLOW (CLEAR); BILIRUBIN,URINE NEGATIVE (NEGATIVE); BLOOD, URINE 1+ (NEGATIVE); COLOR,URINE CLEAR (YELLOW); PH,URINE 6.5 (5.0-9.0); UGLUCOSE NEG (NEGATIVE)
[2020-06-05 13:02] LABS: LEUKOCYTE ESTERASE ,URINE NEGATIVE (NEGATIVE); NITRITE, URINE NEGATIVE (NEGATIVE)
[2020-06-05 13:03] LABS: RBC,URINE 0-5 /HPF (0-5); WBC,URINE 0-5 /HPF (0-5)
--- NOTE | 2020-06-05 13:50 | NUR ---
Consent signed per PT AND DR NAZARIO agreeing to administration of blood. Blood has been type and crossmatched. Blood sent from blood bank. Information on unit of blood checked against patient wristband at bedside by two nurses. All information matches. Patient or responsible democrat informed of potential complications associated with blood transfusion. Informed of possible transfusion reaction symptoms. Aware of need to notify nurse at once of itching, shortness of breath, flushing, feeling of impending doom, or other symptoms not previously present. Vital signs taken within 5 minutes prior to initiation of transfusion. RN will remain with patient for first 15 minutes of transfusion at which time vital signs will be re-assessed.
--- NOTE | 2020-06-05 14:25 | NUR ---
No transfusion reaction noted at this time. Pt awake and alert. No complaint of pain. VSS
--- NOTE | 2020-06-05 15:23 | NUR ---
Blood transfusion continues to run at this time. Pt has no complaints at this time. Will continue to monitor
--- NOTE | 2020-06-05 15:45 | NUR ---
Blood transfusion completed at this time, no transfusion reaction occurred. VSS
--- NOTE | 2020-06-05 16:47 | NUR ---
Resting with eyes closed, visible rise and fall of the chest. Arousable to voice. Denies pain at this time. Will continue to monitor
--- NOTE | 2020-06-05 18:27 | NUR ---
Pt states she wants to leave AMA. Pt made aware of risks of leaving AMA. Admitting doctor made aware.
[2020-06-05 18:29] VITALS: BP 129/79
--- NOTE | 2020-06-05 18:30 | NUR ---
AMA paper signed by pt. IV discontinued and pt left hospital
--- NOTE | 2020-06-05 18:31 | NUR ---
Dr Jones made aware of pt leaving AMA.
[2020-06-05] MEDS ORDERED: FERROUS SULFATE 325 MG TABEC PO SCH (21:00)
[2020-06-06] MEDS ORDERED: CHOLECALCIFEROL 1,000 IU TAB PO SCH (09:00)
[2020-06-06] MEDS ORDERED: LEVONORGESTREL ETHIN ESTRADIOL PO SCH (09:00)
== END 2020-06-05 18:30 | disposition left against medical advice (07) ==
LOC: MED 09:31 → MTU 13:47 → UNDOADMOB 13:47
DX: D50.0 Iron deficiency anemia secondary to blood loss (chronic) (principal); N93.8 Other specified abnormal uterine and vaginal bleeding; D25.9 Leiomyoma of uterus, unspecified; J45.909 Unspecified asthma, uncomplicated; Z98.890 Other specified postprocedural states; Z79.899 Other long term (current) drug therapy
CPT/HCPCS: 36415; 76830; 80048; 81001; 81025; 85025; 85610; 85730; 86886; 86900; 86901; 86920; 96374; 96375; 99285; J0780; J1200; J1885; P9016; Q0092

== ENCOUNTER 2021-01-31 19:19 | Emergency (ER) | payer OTHER, SELFPAY ==
[~2021-01-31] VITALS: Ht 157.5 cm; Wt 80.7 kg
[2021-01-31 19:31] VITALS: BP 142/93
--- NOTE | 2021-01-31 19:44 | NUR ---
PATIENT AMB TO LOBBY TO AWAIT FOR A BED
--- NOTE | 2021-01-31 19:54 | NUR ---
PT AMBULATED TO BED #12
[2021-01-31] MEDS ORDERED: ASPIRIN 81 MG TAB.CHEW PO ONE (20:05)
--- NOTE | 2021-01-31 20:24 | NUR ---
45 Y FEMALE PRESENTS TO THE ED WITH CHEST PAIN, PT STATES THAT "IT MIGHT BE DUE TO LIFTING HER GARAGE DOOR". PAIN IS 7/10 SORENESS, TENDERNESS THAT RADIATES TO THE ARMPIT AND BACK. DENIES N/V/D; SKIN IS PINK/WARM/DRY; AAOX4 WITH EVEN AND STEADY GAIT; LUNGS CLEAR BL; HR EVEN AND REGULAR; PT DENIES ANY FEVER, CP, SOB, OR COUGH AT THIS TIME; PATIENT STATES PAIN OF 0/10 AT THIS TIME; VSS; PATIENT POSITIONED FOR COMFORT; HOB ELEVATED; BEDRAILS UP X2; BED DOWN. ER MD MADE AWARE OF PT STATUS. PMH: HYSTERESCOPY, ANEMIA NKA
--- NOTE | 2021-01-31 20:30 | NUR ---
XRAY AT BEDSIDE
--- NOTE | 2021-01-31 20:35 | NUR ---
LAB AT BEDSIDE
[2021-01-31 20:48] LABS: BASOPHILS % (AUTO) 0.3 % (0.0-2.0); EOSINOPHILS # (AUTO) 0.1 K/uL (0-0.4); EOSINOPHILS % (AUTO) 1.9 % (0.0-4.0); HEMATOCRIT 42.7 % (36-48); HEMOGLOBIN 14.5 g/dL (12.0-16.0); LYMPHOCYTES # (AUTO) 1.6 K/uL (2.5-16.5); LYMPHOCYTES % (AUTO) 22.4 % (20.5-51.1); MEAN CORPUSCULAR HEMOGLOBIN 30 pg (27-31); MEAN CORPUSCULAR HGB CONC 34 g/dL (33-37); MEAN CORPUSCULAR VOLUME 89.8 fL (80-94); MONOCYTES # (AUTO) 0.4 K/uL (0.8-1.0); NEUTROPHILS # (AUTO) 5.1 K/uL (1.8-7.7); NEUTROPHILS % (AUTO) 69.4 % (42.2-75.2); PLATELET COUNT (AUTO) 187 K/uL (140-450); RED BLOOD CELL COUNT(AUTO) 4.75 MIL/uL (4.20-5.40); RED CELL DISTRIBUTION WIDTH 12.4 % (11.6-13.7); WHITE BLOOD COUNT (AUTO) 7.3 K/uL (4.8-10.8)
[2021-01-31 20:59] LABS: PROTHROMBIN TIME 9.7 secs (10.8-13.4)
[2021-01-31 21:01] LABS: ALBUMIN 3.5 g/dL (3.4-5.0); ANION GAP 9.1 (8-16); CARBON DIOXIDE 28.6 mmol/L (21-32); CREATININE 0.5 mg/dL (0.6-1.3); POTASSIUM 3.7 mmol/L (3.5-5.1); TOTAL BILIRUBIN 0.6 mg/dL (0.0-1.0)
[2021-01-31 21:43] VITALS: BP 142/93
== END 2021-01-31 21:43 | disposition home or self-care (01) ==
LOC: MED 19:19
DX: R07.9 Chest pain, unspecified (principal); D64.9 Anemia, unspecified
CPT/HCPCS: 36415; 71045; 80053; 84484; 85025; 85610; 85730; 93005; 99285

== ENCOUNTER 2021-06-13 19:46 | Emergency (ER) | payer OTHER ==
[~2021-06-13] VITALS: Ht 160 cm; Wt 122.5 kg
[2021-06-13 20:05] VITALS: BP 136/99
--- NOTE | 2021-06-13 20:08 | NUR ---
TO LOBBY A/W BED AMBULATORY
--- NOTE | 2021-06-13 21:00 | NUR ---
SEENAND EXAMINED BY OTILIA
[2021-06-13] MEDS ORDERED: DIPH25TA53 PO (21:20)
[2021-06-13] MEDS ORDERED: KEN.1O TP (21:20)
[2021-06-13] MEDS ORDERED: CEPH-588 PO (21:20)
[2021-06-13 22:40] VITALS: BP 122/78
--- NOTE | 2021-06-13 22:40 | NUR ---
Patient discharged with v/s stable. Written and verbal after care instructions given and explained. Patient alert, oriented and verbalized understanding of instructions. Ambulatory with steady gait. All questions addressed prior to discharge. ID band removed. Patient advised to follow up with PMD. Rx of keflex, benadryl, kenalog 0.1% given. Patient educated on indication of medication including possible reaction and side effects. Opportunity to ask questions provided and answered.
== END 2021-06-13 22:40 | disposition home or self-care (01) ==
LOC: MED 19:46
DX: R21 Rash and other nonspecific skin eruption (principal); J45.909 Unspecified asthma, uncomplicated; Z98.890 Other specified postprocedural states
CPT/HCPCS: 99283

== ENCOUNTER 2022-07-04 14:15 | Emergency (ER) | payer OTHER ==
[~2022-07-04] VITALS: Ht 160 cm; Wt 119.3 kg
[~2022-07-04 14:15] MED LIST changes: +CEPH-588 PO; +CHOL100084 PO; +DIPH25TA53 PO; +KEN.1O TP; -VITD1000 PO
[2022-07-04 14:19] VITALS: BP 166/98
--- NOTE | 2022-07-04 14:21 | NUR ---
AMBULATED TO BED 2
--- NOTE | 2022-07-04 14:32 | NUR ---
Maxx Sykes at bedside for evaluation
[2022-07-04] MEDS ORDERED: diphenhydrAMINE 50 MG CAP PO ONE (14:40)
[2022-07-04] MEDS ORDERED: predniSONE 20 MG TAB PO ONE (14:40)
[2022-07-04] MEDS ORDERED: PRED20TA5 PO (14:48)
[2022-07-04] MEDS ORDERED: BEN50 PO (14:48)
[2022-07-04] MEDS ORDERED: HYDR28CR38 TP (14:48)
[2022-07-04 15:05] VITALS: BP 166/98
--- NOTE | 2022-07-04 15:05 | NUR ---
Patient discharged with v/s stable. Written and verbal after care instructions about rash given and explained. Patient alert, oriented and verbalized understanding of instructions. Ambulatory with steady gait. All questions addressed prior to discharge. ID band removed. Patient advised to follow up with PMD. Rx of Benadryl, Prednisone, Hydrocortisone given. Patient educated on indication of medication including possible reaction and side effects. Opportunity to ask questions provided and answered.
== END 2022-07-04 15:05 | disposition home or self-care (01) ==
LOC: MED 14:15
DX: R21 Rash and other nonspecific skin eruption (principal); R03.0 Elevated blood-pressure reading, without diagnosis of hypertension; J45.909 Unspecified asthma, uncomplicated
CPT/HCPCS: 99283; J7512; Q0163

== ENCOUNTER 2022-07-22 19:54 | Emergency (ER) | payer OTHER ==
[~2022-07-22] VITALS: Ht 157.5 cm; Wt 117.7 kg
[~2022-07-22 19:54] MED LIST changes: +BEN50 PO; +HYDR28CR38 TP; +PRED20TA5 PO
--- NOTE | 2022-07-22 20:09 | NUR ---
Note sonumichelle in EDM - 07/22/22 at 2118 by MED Patient discharged with v/s stable. Written and verbal after care instructions given and explained. Patient alert, oriented and verbalized understanding of instructions. Ambulatory with steady gait. All questions addressed prior to discharge. ID band removed. Patient advised to follow up with PMD. Rx of TYLENOL, LOPERAMIDE, AND ZOFRAN given. Patient educated on indication of medication including possible reaction and side effects. Opportunity to ask questions provided and answered.
[2022-07-22 20:22] VITALS: BP 143/85
--- NOTE | 2022-07-22 20:23 | NUR ---
PATIETN AMBULATED TO RR
[2022-07-22] MEDS ORDERED: ACET-10509 PO (20:42)
[2022-07-22] MEDS ORDERED: ONDA-188 PO (20:42)
[2022-07-22] MEDS ORDERED: IMO2 PO (20:42)
[2022-07-22] MEDS ORDERED: ONDANSETRON 4 MG ODT PO SCH (20:45)
[2022-07-22] MEDS ORDERED: LOPERAMIDE 2 MG CAP PO SCH (20:45)
[2022-07-22 21:09] VITALS: BP 143/85
--- NOTE | 2022-07-22 21:09 | NUR ---
Patient discharged with v/s stable. Written and verbal after care instructions given and explained. Patient alert, oriented and verbalized understanding of instructions. Ambulatory with steady gait. All questions addressed prior to discharge. ID band removed. Patient advised to follow up with PMD. Rx of TYLENOL, LOPERAMDE, ZOFRAN given. Patient educated on indication of medication including possible reaction and side effects. Opportunity to ask questions provided and answered.
--- NOTE | 2022-07-22 21:18 | NUR ---
The patient's care was reviewed and supervised by Macy Jacobson RN, RN.
== END 2022-07-22 21:09 | disposition home or self-care (01) ==
LOC: MED 19:54
DX: R11.2 Nausea with vomiting, unspecified (principal); R19.7 Diarrhea, unspecified; R03.0 Elevated blood-pressure reading, without diagnosis of hypertension; J45.909 Unspecified asthma, uncomplicated
CPT/HCPCS: 81002; 81025; 99283; Q0162

== ENCOUNTER 2023-10-11 02:40 | Emergency (ER) | payer OTHER ==
[~2023-10-11] VITALS: Ht 157.5 cm; Wt 124.3 kg
[~2023-10-11 02:40] MED LIST changes: +ACET-10509 PO; +IMO2 PO; +ONDA-188 PO
[2023-10-11 02:47] VITALS: BP 168/111; PULSE 95; RESP 20; TEMP 97.9; O2SAT 99
[2023-10-11] MEDS ORDERED: ALBUTEROL 0.083% 2.5 MG/3 ML NEBU INH ONE (02:55)
[2023-10-11] MEDS ORDERED: predniSONE 20 MG TAB PO ONE (02:55)
[2023-10-11] MEDS ORDERED: ALBUTEROL SULFATE/IPRATROPIU 3 ML SOL IH ONE (02:55)
[2023-10-11] MEDS ORDERED: PRED20TA5 PO (03:01)
[2023-10-11] MEDS ORDERED: ALBU0.0912 INH (03:01)
[2023-10-11 03:09] VITALS: PULSE 70; RESP 16; RESP 18; O2SAT 18; O2SAT 97; O2SAT 98
== END 2023-10-11 03:48 | disposition home or self-care (01) ==
LOC: MED 02:40
DX: J45.901 Unspecified asthma with (acute) exacerbation (principal); Z79.899 Other long term (current) drug therapy
CPT/HCPCS: 94640; 99283; J7512; J7613

== ENCOUNTER 2024-02-09 18:48 | Inpatient (IN) | payer MEDICAID, OTHER ==
[~2024-02-09] VITALS: Ht 160 cm; Wt 126.3 kg
[~2024-02-09 18:48] MED LIST changes: +ALBU0.0912 INH
[2024-02-09 18:59] VITALS: BP 184/110; PULSE 78; TEMP 97.8; O2SAT 94
[2024-02-09 19:26] LABS: BASOPHILS % (AUTO) 0.3 % (0.0-2.0); EOSINOPHILS # (AUTO) 0.2 K/uL (0-0.4); EOSINOPHILS % (AUTO) 2.5 % (0.0-4.0); LYMPHOCYTES # (AUTO) 1.5 K/uL (2.5-16.5); MEAN CORPUSCULAR HEMOGLOBIN 30 pg (27-31); MEAN CORPUSCULAR HGB CONC 35 g/dL (33-37); MEAN CORPUSCULAR VOLUME 86.9 fL (80-94); MONOCYTES # (AUTO) 0.3 K/uL (0.8-1.0); MONOCYTES % (AUTO) 3.9 % (1.7-9.3); NEUTROPHILS % (AUTO) 74.3 % (42.2-75.2); PLATELET COUNT (AUTO) 168 K/uL (140-450); RED BLOOD CELL COUNT(AUTO) 4.94 MIL/uL (4.20-5.40); RED CELL DISTRIBUTION WIDTH 12.3 % (11.6-13.7); WHITE BLOOD COUNT (AUTO) 8.1 K/uL (4.8-10.8)
[2024-02-09 19:34] LABS: ANION GAP 11.9 (8-16); CALCIUM 8.8 mg/dL (8.5-10.1); CARBON DIOXIDE 26.7 mmol/L (21-32); CREATININE 0.6 mg/dL (0.6-1.3); POTASSIUM 3.6 mmol/L (3.5-5.1)
[2024-02-09] MEDS: LORazepam 0.5 MG TAB PO ONE (20:09)
[2024-02-09] MEDS ORDERED: hydrALAZINE 20 MG/ML VIAL IVP PRN (20:45)
[2024-02-09] MEDS ORDERED: NITROGLYCERIN 0.4 MG TAB SL PRN (20:45)
[2024-02-09] MEDS ORDERED: ALBUTEROL SULFATE/IPRATROPIU 3 ML SOL IH PRN (20:45)
[2024-02-09] MEDS: ASPIRIN 81 MG TAB.CHEW PO ONE (20:52)
[2024-02-09] MEDS: ATORVASTATIN 20 MG TAB PO SCH (21:27)
[2024-02-09] MEDS: METOPROLOL 25 MG TAB PO SCH (21:27)
[2024-02-09 23:51] VITALS: PULSE 63; RESP 18; O2SAT 96
[2024-02-09] MEDS ORDERED: hePARIN / DEXT 5% PREMIX 250 ML IV ONE (23:55)
[2024-02-10] MEDS: MELATONIN 3 MG TAB PO PRN (00:18)
[2024-02-10] MEDS ORDERED: HEPARIN PER PHARMACY MC PRN (01:05)
[2024-02-10] MEDS: hePARIN / DEXT 5% PREMIX 250 ML IV SCH ×2 (01:22→16:48)
[2024-02-10 04:00] VITALS: BP 127/72; PULSE 59; RESP 18; TEMP 97.6; O2SAT 96
[2024-02-10 07:52] LABS: BASOPHILS % (AUTO) 0.6 % (0.0-2.0); EOSINOPHILS # (AUTO) 0.3 K/uL (0-0.4); EOSINOPHILS % (AUTO) 4.4 % (0.0-4.0); HEMATOCRIT 41.5 % (36-48); HEMOGLOBIN 14.3 g/dL (12.0-16.0); LYMPHOCYTES # (AUTO) 2.2 K/uL (2.5-16.5); LYMPHOCYTES % (AUTO) 33.7 % (20.5-51.1); MEAN CORPUSCULAR HEMOGLOBIN 30 pg (27-31); MEAN CORPUSCULAR HGB CONC 34 g/dL (33-37); MEAN CORPUSCULAR VOLUME 86.5 fL (80-94); MONOCYTES # (AUTO) 0.4 K/uL (0.8-1.0); MONOCYTES % (AUTO) 5.5 % (1.7-9.3); NEUTROPHILS # (AUTO) 3.7 K/uL (1.8-7.7); NEUTROPHILS % (AUTO) 55.8 % (42.2-75.2); PLATELET COUNT (AUTO) 159 K/uL (140-450); RED CELL DISTRIBUTION WIDTH 12.4 % (11.6-13.7); WHITE BLOOD COUNT (AUTO) 6.7 K/uL (4.8-10.8)
[2024-02-10 08:00] VITALS: BP 131/63; PULSE 70; RESP 18; TEMP 97.3; O2SAT 95
[2024-02-10 08:17] LABS: ANION GAP 12.3 (8-16); CALCIUM 8.7 mg/dL (8.5-10.1); CREATININE 0.5 mg/dL (0.6-1.3); POTASSIUM 3.3 mmol/L (3.5-5.1)
[2024-02-10] MEDS: ASPIRIN 81 MG TAB.CHEW PO SCH (09:09)
[2024-02-10] MEDS: LORazepam 2 MG/ML VIAL IM/IVP PRN (09:17)
[2024-02-10 12:00] VITALS: BP 103/50; PULSE 60; PULSE 61; RESP 18; TEMP 97.6; O2SAT 97
[2024-02-10 16:00] VITALS: BP 134/77; PULSE 72; RESP 18; TEMP 97.6; O2SAT 96
[2024-02-10] MEDS: POTASSIUM CHLORIDE 10 MEQ TABER PO SCH (19:00)
[2024-02-10 20:00] VITALS: BP 131/77; PULSE 72; PULSE 77; RESP 18; TEMP 97; O2SAT 97
[2024-02-10] MEDS ORDERED: Heparin Per Pharmacy MC (23:27)
[2024-02-10] MEDS ORDERED: METO25TA PO (23:27)
[2024-02-10] MEDS ORDERED: HEPA500056 IV (23:27)
[2024-02-10] MEDS ORDERED: ATOR20TA40 PO (23:27)
[2024-02-10] MEDS ORDERED: NITR0.4T1 SL (23:27)
[2024-02-10] MEDS ORDERED: ASPI81CT95 PO (23:27)
[2024-02-10 23:33] VITALS: BP 150/60; PULSE 107; RESP 18; TEMP 98
[2024-02-11] VITALS: BP 133/75; PULSE 64; PULSE 75; RESP 18; TEMP 97.2; O2SAT 97
[2024-02-11 04:00] VITALS: BP 130/74; PULSE 59; PULSE 62; RESP 19; TEMP 97.5; O2SAT 96
[2024-02-11 05:56] LABS: BASOPHILS % (AUTO) 0.5 % (0.0-2.0); EOSINOPHILS # (AUTO) 0.2 K/uL (0-0.4); EOSINOPHILS % (AUTO) 4.2 % (0.0-4.0); HEMATOCRIT 42.4 % (36-48); HEMOGLOBIN 14.4 g/dL (12.0-16.0); LYMPHOCYTES # (AUTO) 2.3 K/uL (2.5-16.5); LYMPHOCYTES % (AUTO) 37.7 % (20.5-51.1); MEAN CORPUSCULAR HEMOGLOBIN 30 pg (27-31); MEAN CORPUSCULAR HGB CONC 34 g/dL (33-37); MEAN CORPUSCULAR VOLUME 87.5 fL (80-94); MONOCYTES # (AUTO) 0.3 K/uL (0.8-1.0); MONOCYTES % (AUTO) 5.4 % (1.7-9.3); NEUTROPHILS # (AUTO) 3.1 K/uL (1.8-7.7); NEUTROPHILS % (AUTO) 52.2 % (42.2-75.2); PLATELET COUNT (AUTO) 158 K/uL (140-450); RED BLOOD CELL COUNT(AUTO) 4.85 MIL/uL (4.20-5.40); RED CELL DISTRIBUTION WIDTH 12.3 % (11.6-13.7)
[2024-02-11 06:08] LABS: CHOL/HDL RATIO 2.6 (1-4.5)
[2024-02-11 06:18] LABS: ANION GAP 13.6 (8-16); CALCIUM 8.9 mg/dL (8.5-10.1); CARBON DIOXIDE 27.1 mmol/L (21-32); CREATININE 0.5 mg/dL (0.6-1.3); POTASSIUM 3.7 mmol/L (3.5-5.1)
[2024-02-11 08:00] VITALS: BP 114/63; PULSE 61; PULSE 66; PULSE 77; RESP 17; RESP 18; TEMP 97.8; O2SAT 94; O2SAT 97
[2024-02-11] MEDS: ATORVASTATIN 20 MG TAB PO SCH (09:02)
[2024-02-11 12:00] VITALS: BP 132/72; PULSE 63; PULSE 66; RESP 18; TEMP 98; O2SAT 95
[2024-02-11 16:00] VITALS: BP 119/66; PULSE 68; PULSE 70; RESP 18; TEMP 97.1; O2SAT 96
[2024-02-11 20:00] VITALS: BP 150/90; PULSE 71; PULSE 75; RESP 20; TEMP 97.9; O2SAT 96
[2024-02-12] MEDS ORDERED: LOSARTAN 50 MG TAB PO SCH (09:00)
== END 2024-02-11 22:30 | disposition short-term general hospital (02) | DRG 190 ==
LOC: MED 18:48 → MTU 20:43
PROVIDERS: ADMIT Family Medicine; ATTEND Family Medicine
DX: I21.4 Non-ST elevation (NSTEMI) myocardial infarction (principal); I50.31 Acute diastolic (congestive) heart failure; E66.9 Obesity, unspecified; Z20.822 Contact with and (suspected) exposure to COVID-19; Z68.42 Body mass index [BMI] 45.0-49.9, adult; Z79.899 Other long term (current) drug therapy
CPT/HCPCS: 36415; 71045; 80048; 83036; 83880; 84484; 85025; 85379; 85730; 87081; 93005; 99285; J1644; J2060

== ENCOUNTER 2024-02-24 10:16 | Emergency (ER) | payer MEDICAID ==
[~2024-02-24] VITALS: Ht 160 cm; Wt 120.2 kg
[~2024-02-24 10:16] MED LIST changes: -ACET-10509 PO; -ALBU0.0912 INH; +ASPI81CT95 PO; +ATOR20TA40 PO; -BEN50 PO; -CEPH-588 PO; -CHOL100084 PO; -DIPH25TA53 PO; -FERR325E14 PO; +HEPA500056 IV; -HYDR28CR38 TP; +Heparin Per Pharmacy MC; -IMO2 PO; -KEN.1O TP; +METO25TA PO; +NITR0.4T1 SL; -ONDA-188 PO; -PRED20TA5 PO; -[UNRECOGNIZED DRUG - CODE] PO
[2024-02-24 10:20] VITALS: BP 142/84; PULSE 71; RESP 18; TEMP 97.6; O2SAT 94
[2024-02-24] MEDS ORDERED: ATA25 PO (10:45)
[2024-02-24 11:00] VITALS: BP 142/84; PULSE 71; RESP 18; TEMP 97.6; O2SAT 94
== END 2024-02-24 11:00 | disposition home or self-care (01) ==
LOC: MED 10:16
DX: F41.9 Anxiety disorder, unspecified (principal); R00.2 Palpitations; J45.909 Unspecified asthma, uncomplicated; I10 Essential (primary) hypertension; I25.2 Old myocardial infarction; Z79.82 Long term (current) use of aspirin; Z79.899 Other long term (current) drug therapy
CPT/HCPCS: 99283